=== PATIENT | female | born 1975 | race Caucasian/White ===

== ENCOUNTER 2017-01-03 10:03 | Inpatient (IN) | payer OTHER ==
[2016-12-21 13:08] VITALS: BMI 28.0
--- NOTE | 2016-12-21 13:27 | PAT Medication Instructions ---
Service Date Dec 21, 2016. Current Home Medication List Acetaminophen (Tylenol), 1,000 MG PO PRN Ascorbic Acid (Vitamin C), 500 MG PO BID Bupropion (Wellbutrin Sr), 300 MG PO QAM Cyclobenzaprine Hcl (Flexeril), 1 TAB PO HS PRN for PRN Diclofenac (Voltaren), 75 MG PO BID Etanercept (Enbrel), 50 MG INJ WEEK Melatonin (Melatonin Maximum Strengt), 10 TAB PO HS Tramadol (Ultram), 100 MG PO QID PRN for dietary server Instructions For Your Scheduled Surgery - Hold the following medications 2 weeks prior to surgery per surgeon's instructions: Etanercept (Enbrel), 50 MG INJ WEEK - Hold the following medications 7-10 days prior to surgery per surgeon's instructions: Diclofenac (Voltaren), 75 MG PO BID - Hold the following medications the morning of surgery: Ascorbic Acid (Vitamin C), 500 MG PO BID Cyclobenzaprine Hcl (Flexeril), 1 TAB PO HS PRN for PRN - Take the following medications the morning of surgery with a sip of water OTHERWISE NOTHING TO EAT OR DRINK AFTER MIDNIGHT: Tramadol (Ultram), 100 MG PO QID PRN (may take if needed up to 4 hours prior to surgery) Acetaminophen (Tylenol), 1,000 MG PO PRN (may take if needed up to 4 hours prior to surgery) Bupropion (Wellbutrin Sr), 300 MG PO QAM - Take the following medications as scheduled the night before surgery: Tramadol (Ultram), 100 MG PO QID PRN Acetaminophen (Tylenol), 1,000 MG PO PRN Melatonin (Melatonin Maximum Strengt), 10 TAB PO HS Ascorbic Acid (Vitamin C), 500 MG PO BID Cyclobenzaprine Hcl (Flexeril), 1 TAB PO HS PRN for PRN If you have any questions please call us at [phone] or [phone] or [phone]
[2016-12-21 14:15] LABS: BASO % 0.4 %; BASO ABS # 0.02 K/uL (0-0.2); COMPLETE YES; EOS % 2.1 %; HEMATOCRIT 36.5 % (37-47); LYMPH % 33.4 %; LYMPH ABS # 1.73 K/uL (1.2-3.4); MEAN CELL VOLUME 88.8 fL (80-100); MEAN CORPUSCULAR HEMOGLOBIN 29.7 pg (25-34); MEAN CORPUSCULAR HGB CONC 33.4 g/dl (32-36); MONO % 5.4 %; NEUT % 58.7 %; PLATELET COUNT 229 K/uL (130-400); RED BLOOD COUNT 4.11 M/uL (4.2-5.4); WHITE BLOOD COUNT 5.18 K/uL (4.8-10.8)
[2016-12-21 14:25] LABS: PARTIAL THROMBOPLASTIN RATIO 1.2; PROTHROMBIN TIME (PATIENT) 10.4 SECONDS (9.0-12.0)
[2016-12-21 14:27] LABS: URINE APPEARANCE CLEAR (CLEAR); URINE BILIRUBIN NEG (NEG); URINE COLOR YELLOW; URINE NITRITE NEG (NEG); URINE PH 5.5 (4.5-7.5); URINE SPECIFIC GRAVITY 1.015 (1.000-1.030); UROBILINOGEN NEG (NEG); ZZUR CULT IF INDIC CLEAN CATCH NO
[2016-12-21 14:39] LABS: MANUAL MICROSCOPIC REQUIRED? NO; REVIEW REQ? NO
[2016-12-21 15:19] LABS: BUN/CREATININE RATIO 17.9 (10-20); CALCIUM 8.4 mg/dl (8.5-10.1); CREATININE 0.74 mg/dl (0.60-1.20); POTASSIUM 3.6 mmol/L (3.5-5.1)
--- NOTE | 2016-12-31 08:47 | HISTORY & PHYSICAL EXAMINATION ---
DATE OF ADMISSION: 01/03/2017 CHIEF COMPLAINT: Left hip pain. HISTORY OF PRESENT ILLNESS: Melissa Landeros is a 41-year-old female with a 6-month history of left hip pain. The patient rates her pain a 9/10. She has pain with her daily activities. She has limited standing and walking tolerance. Pain is worse with weightbearing. The patient has had anti-inflammatories and physical therapy without relief. She has failed conservative treatment and is scheduled for left hip replacement. PAST MEDICAL HISTORY: Ankylosing spondylitis. She denies diabetes, heart disease or DVT. PAST SURGICAL HISTORY: Cholecystectomy, appendectomy, oophorectomy, tubal ligation, wisdom tooth extraction, diagnostic laparotomy, left bunionectomy, right total hip replacement. SOCIAL HISTORY: The patient denies alcohol or tobacco use. She lives in a 1-story home with her kids and her ex-. She works as a nurse. FAMILY HISTORY: Positive for DVT/PE in her mom who has lupus anticoagulant. MEDICATIONS: Diclofenac 75 mg b.i.d., Wellbutrin 150 mg 2 tablets daily, Enbrel 50 mg weekly, Tylenol 500 mg 2 tabs q.i.d., tramadol 50 mg 2 tabs q.i.d., vitamin C 500 mg b.i.d., melatonin 10 mg. ALLERGIES: DEMEROL CAUSES HIVES. REVIEW OF SYSTEMS: See HPI. Ten other systems reviewed, all negative. PHYSICAL EXAMINATION: VITAL SIGNS: Height is 5 foot 6, weight 171 pounds, BMI is 28. GENERAL: This is a well-developed, well-nourished female who is alert and oriented x3. Mood and affect are appropriate. HEAD, EYES, EARS, NOSE, AND THROAT: Normocephalic, atraumatic. Mucous membranes are moist and intact. NECK: Supple without lymphadenopathy. HEART: Regular rate and rhythm without murmurs, rubs or gallops. LUNGS: Clear to auscultation without wheezes or rhonchi. ABDOMEN: Soft and nontender. Bowel sounds are equal and active. EXTREMITIES: No ecchymosis, redness or warmth. Log roll of the hip reproduces pain in the groin. She is neurovascularly intact with +5/5 strength. X-RAY EXAMINATION: AP and lateral views show joint space narrowing and osteophyte formation. She has cystic formation and potential collapse of her femoral head. IMPRESSION: Degenerative joint disease, left hip. PLAN: The patient will be admitted for a left total hip arthroplasty, direct anterior approach. We will plan on [facility] for physical therapy. She will have aspirin for DVT prophylaxis. PCP is Horacio Rangel.
[~2017-01-03] VITALS: Ht 167.6 cm; Wt 78.8 kg
[2017-01-03] VITALS (7 sets, daily range): BP systolic 94–135; BP diastolic 57–81; PULSE 80–92; TEMP 36.7–36.9; O2SAT 96–100; Ht 167.6 cm; Wt 78.8 kg
[~2017-01-03 10:03] MED LIST: ACET-1256 PO; ACETAMINOPHEN 500 MG TAB PO SCH; ASCO1CAP3 PO; BUPIVACAINE 0.5 % 5 MG/1 ML PF 10ML VIAL ONE; BUPR-79 PO; CEFAZOLIN 2000 MG/60 ML D5W 60 ML IV SCH; CYCL10TA6 PO; CeleBREX 200 MG CAP PO SCH; DEXAMETHASONE 4 MG TAB PO SCH; DICL-201 PO; ETAN50IN2 INJ; FAMOTIDINE 20 MG TAB PO SCH; GABAPENTIN 300 MG CAP PO SCH; LACTATED RINGER'S 1000ML 1,000 ML IV SCH; LACTATED RINGER'S 1000ML 500 ML IV ONE; LACTATED RINGER'S 1000ML IV SCH; MELATAB2 PO; METOCLOPRAMIDE HCL 10 MG TAB PO SCH; OXYCODONE HCL 10 MG TABCR (OXYCONTIN) PO SCH; POLYMYXIN B SULFATE 100,000 UNITS in NSS 100ML IR SCH; ROPIVACAINE 5MG/ML 30 ML 150 MG, BUPIVACAINE/EPINEPHR 0.5% MPF 30 ML, KETOROLAC TROMETH... INFIL SCH; TRAM-10 PO; VANCOMYCIN INJ 400 MG in NSS 100ML IR SCH
[2017-01-03] MEDS ORDERED: MIDAZOLAM HCL 1 MG/ML 2ML VIAL ONE ×2 (11:17→13:39)
[2017-01-03] MEDS ORDERED: FENTANYL CITRATE INJ 50 MCG/1 ML 2 ML VIAL ONE (11:17)
--- NOTE | 2017-01-03 12:17 | History & Physical Bridge Note ---
H&P Re-Evaluation Bridge Note: I have examined the patient, reviewed the History & Physical and in the interval since the performance of the History & Physical I have noted the following changes of clinical significance: No changes noted
[2017-01-03] MEDS ORDERED: ORTHO JOINT ANESTHETIC ONE (12:40)
[2017-01-03] MEDS ORDERED: BACITRACIN 50000 UNIT VIAL ONE (12:40)
[2017-01-03] MEDS ORDERED: POVIDONE-IODINE OP SOLN 30 ML BTL ONE (12:40)
[2017-01-03] MEDS ORDERED: LACTATED RINGER'S 1000ML 1,000 ML IV PRN (12:42)
[2017-01-03] MEDS ORDERED: ONDANSETRON INJ 2 MG/ML 2 ML VIAL IV PRN ×2 (12:45→18:00)
[2017-01-03] MEDS ORDERED: FENTANYL CITRATE INJ 50 MCG/1 ML 2 ML VIAL IV PRN (12:45)
[2017-01-03] MEDS: TRANEXAMIC ACID INJ 1,000 MG in SODIUM CHLORIDE 0.9% 100ML 100 ML IV SCH ×2 (13:09→17:11)
[2017-01-03] MEDS ORDERED: LIDOCAINE HCL 2% 2 ML VIAL (20MG/ML) ONE (13:38)
[2017-01-03] MEDS ORDERED: PROPOFOL IV EMULSION 10 MG/ML 20 ML VIAL IV ONE ×2 (13:38→14:18)
[2017-01-03] MEDS ORDERED: PHENYLEPHRINE 100MCG/ML 5ML SYR ONE (13:48)
--- NOTE | 2017-01-03 14:41 | [facility] Post Operative Brief Note ---
Immediate Operative Summary Operative Date Jan 03, 2017. Pre-Operative Diagnosis Left Hip Degenerative Joint Disease Post-Operative Diagnosis Left Hip Degenerative Joint Disease Procedure(s) Performed Left Total Hip Arthroplasty, Direct Anterior Approach Surgeon Dr. Arik Mittal Personal Security Specialist Surgeon(s) Emani Goodson PA-C Estimated Blood Loss 100 mL Findings DJD Specimens A: Left Femoral Head Complication(s) None Disposition Recovery Room / PACU
--- NOTE | 2017-01-03 14:46 | DIAGNOSTIC IMAGING REPORT ---
LEFT HIP UNILATERAL 1 VIEW CLINICAL HISTORY: Left hip arthroplasty. COMPARISON STUDY: None. FINDINGS: Total fluoroscopy time was 9 seconds. A single fluoroscopic spot image. Partially visualized left total hip arthroplasty. The hardware appears intact. No fracture or dislocation. IMPRESSION: Fluoroscopy provided for left total hip arthroplasty. Electronically signed by: Erik Carty M.D. 01/03/2017 2:44 PM Dictated Date/Time: 01/03/2017 2:43 PM
--- NOTE | 2017-01-03 15:06 | OPERATIVE REPORT ---
DATE OF OPERATION: 01/03/2017 PREOPERATIVE DIAGNOSIS: Degenerative arthritis, left hip. POSTOPERATIVE DIAGNOSIS: Same. PROCEDURE: Left total hip replacement. SURGEON: Arik Mittal MD HOOP CUTTER: DANNA Leigh ANESTHESIA: Spinal. BLOOD LOSS: 100 mL. REPLACEMENT FLUIDS: 1500 mL crystalloid. DRAINS: Hemovac x2. CULTURES: None. COMPLICATIONS: None. COMPONENTS USED: Allison \T\ Nephew Anthology hip system: Acetabulum size 48, femur size 3 standard offset, femoral head 0, neck length 32 mm. NOTE: DANNA Leigh was present and assisted throughout due to the complicated nature of this case. She helped with preparation and set up, first assisted and personally closed the fascia, subcutaneous and skin layers. DESCRIPTION OF PROCEDURE: Following satisfactory spinal, the patient was supine. The left leg was placed in the traction device and the right leg in the well leg xiao. Left leg was prepared with ChloraPrep and draped sterilely. Following a surgical time-out, an anterior approach was performed in the interval between the sartorius and tensor muscles through a large subcutaneous fat layer. The circumflex femoral vessels were identified and ligated. 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 Femoral neck and head were trimmed. The acetabular self-retaining retractor was placed. Acetabular reaming and preparation was completed and a 48 shell was impacted into an anatomic position and secured with a dome screw. Local anesthetic was placed and after irrigation a polyethylene liner was placed. The femur was placed into position of external rotation, extension and adduction. Femoral canal was prepared up to a size 3. Trial reduction with a 0 neck length head using fluoroscopy showed good fit and fill of the proximal canal and lutheran of leg lengths using anatomic landmark. The hip was dislocated. The trial component was removed. After preparation, the final implant was placed. The hip was irrigated and reduced. Fluoroscopy showed similar findings. A Betadine soak was performed. After 5 minutes, the Betadine was irrigated. The capsule was closed with #1 Vicryl interrupted. A drain was placed. The fascia was closed with a running suture of #1 Vicryl, subcutaneous tissues with #1 and 2-0 Vicryl and the skin with a running subcuticular stitch of 3-0 V-Loc. Dermabond and a dry dressing were applied. The patient was returned to her bed in stable condition. I attest to the content of the Intraoperative Record and any orders documented therein. Any exceptio ns are noted below.
--- NOTE | 2017-01-03 15:09 | Anesthesiology Progress Note ---
Anesthesia Post Op Note Date & Time Jan 03, 2017 at 15:08 Vital Signs Pain Intensity: 0 Vital Signs Past 12 Hours Date Time Temp Pulse Resp B/P Pulse Ox O2 Delivery O2 Flow Rate FiO2 01/03/17 15:05 89 14 116/64 100 Nasal Cannula 2 01/03/17 14:56 36.2 97 16 115/68 96 Nasal Cannula 2 01/03/17 10:31 36.9 80 18 135/81 100 Room Air Notes Mental Status: alert / awake / arousable, participated in evaluation Pt Amnestic to Procedure: No (recall as expected) Nausea / Vomiting: adequately controlled Pain: adequately controlled Airway Patency, RR, SpO2: stable & adequate BP & HR: stable & adequate Hydration State: stable & adequate Neuraxial Anesthesia: was administered, sensory block is resolving Anesthetic Complications: no major complications apparent Pt doing well.
--- NOTE | 2017-01-03 15:23 | DIAGNOSTIC IMAGING REPORT ---
AP PELVIS, CROSSTABLE LATERAL LEFT HIP History: Left total hip arthroplasty. Degenerative arthritis. Postop. FINDINGS: The patient is status post a left total hip arthroplasty. The hardware is intact. No fracture or dislocation. Surgical drains are in place. There is a prior right total arthroplasty IMPRESSION: Left total hip arthroplasty. No evidence for hardware complication. Electronically signed by: Erik Carty M.D. 01/03/2017 3:20 PM Dictated Date/Time: 01/03/2017 3:19 PM
[2017-01-03] MEDS ORDERED: NURSING VERBAL MED ORDER ONE (18:00)
[2017-01-03] MEDS ORDERED: ALUMINUM/MAGNESIUM/SIMETH (MAALOX MAX) 30 ML UDC PO PRN (18:00)
[2017-01-03] MEDS ORDERED: CYCLOBENZAPRINE HCL 10 MG TAB PO PRN (18:00)
[2017-01-03] MEDS: KETOROLAC TROMETHAMINE 30 MG/ML VIAL IV. SCH (19:39)
[2017-01-03] MEDS: CEFAZOLIN IV 1,000 MG in DEXTROSE 5% 50ML 50 ML IV SCH (19:39)
[2017-01-03] MEDS: D5W AND 1/2NSS + 20MEQ KCL 1,000 ML IV SCH (19:40)
[2017-01-03] MEDS: ACETAMINOPHEN 500 MG TAB PO SCH (19:40)
[2017-01-03] MEDS: ASPIRIN 81 MG ECTAB PO SCH (20:41)
[2017-01-03] MEDS: ASCORBIC ACID 500 MG TAB PO SCH (20:41)
[2017-01-03] MEDS: DOCUSATE SODIUM 100 MG CAP PO SCH (20:41)
[2017-01-03] MEDS ORDERED: SENNA 8.6 MG TAB PO SCH (21:00)
[2017-01-03] MEDS: OXYCODONE HCL IR 5 MG TAB (IMMEDIATE RELEASE) PO PRN (22:51)
[2017-01-04] MEDS: ACETAMINOPHEN 500 MG TAB PO SCH ×2 (01:38→10:28)
[2017-01-04] MEDS: KETOROLAC TROMETHAMINE 30 MG/ML VIAL IV. SCH ×2 (01:38→07:42)
[2017-01-04 03:03] VITALS: BP 96/59; PULSE 79; TEMP 36.8; O2SAT 96
[2017-01-04] MEDS: CEFAZOLIN IV 1,000 MG in DEXTROSE 5% 50ML 50 ML IV SCH (03:22)
[2017-01-04] MEDS: D5W AND 1/2NSS + 20MEQ KCL 1,000 ML IV SCH (05:25)
[2017-01-04 05:47] LABS: BASO % 0.1 %; BASO ABS # 0.01 K/uL (0-0.2); COMPLETE YES; HEMATOCRIT 29.7 % (37-47); IG% 0.3 %; LYMPH % 20.6 %; LYMPH ABS # 1.46 K/uL (1.2-3.4); MEAN CELL VOLUME 88.9 fL (80-100); MEAN CORPUSCULAR HEMOGLOBIN 29.9 pg (25-34); MEAN CORPUSCULAR HGB CONC 33.7 g/dl (32-36); MEAN PLATELET VOLUME 9.7 fL (7.4-10.4); MONO % 8.3 %; NEUT % 70.7 %; PLATELET COUNT 179 K/uL (130-400); RED BLOOD COUNT 3.34 M/uL (4.2-5.4); WHITE BLOOD COUNT 7.09 K/uL (4.8-10.8)
[2017-01-04] MEDS: OXYCODONE HCL IR 5 MG TAB (IMMEDIATE RELEASE) PO PRN ×3 (06:17→15:38)
[2017-01-04 06:20] LABS: BUN/CREATININE RATIO 12.3 (10-20); CALCIUM 7.8 mg/dl (8.5-10.1); CREATININE 0.63 mg/dl (0.60-1.20); POTASSIUM 3.7 mmol/L (3.5-5.1)
[2017-01-04 07:27] VITALS: BP 99/61; PULSE 74; TEMP 36.9; O2SAT 97
[2017-01-04] MEDS: FERROUS GLUCONATE 324 MG TAB PO SCH ×2 (07:43→13:15)
--- NOTE | 2017-01-04 08:45 | Anesthesiology Progress Note ---
Anesthesia Post Op Note Date & Time Jan 04, 2017 at 08:44 Vital Signs Pain Intensity: 3.0 Vital Signs Past 12 Hours Date Time Temp Pulse Resp B/P Pulse Ox O2 Delivery O2 Flow Rate FiO2 01/04/17 07:40 Room Air 01/04/17 07:27 36.9 74 16 99/61 97 Room Air 01/04/17 03:03 36.8 79 16 96/59 96 Room Air 01/03/17 23:30 Room Air 01/03/17 23:05 36.7 84 16 94/57 96 Room Air Notes Mental Status: alert / awake / arousable, participated in evaluation Pt Amnestic to Procedure: Yes Nausea / Vomiting: adequately controlled Pain: adequately controlled Airway Patency, RR, SpO2: stable & adequate BP & HR: stable & adequate Hydration State: stable & adequate Neuraxial Anesthesia: sensory block resolved Anesthetic Complications: no major complications apparent
[2017-01-04] MEDS: ASCORBIC ACID 500 MG TAB PO SCH (08:56)
[2017-01-04] MEDS: ASPIRIN 81 MG ECTAB PO SCH (08:56)
[2017-01-04] MEDS: DOCUSATE SODIUM 100 MG CAP PO SCH (08:56)
[2017-01-04] MEDS ORDERED: PANTOprazole SOD 40 MG TAB PO SCH (09:00)
[2017-01-04] MEDS ORDERED: MULTIVITAMIN TAB PO SCH (09:00)
[2017-01-04] MEDS ORDERED: BuPROPion SR 150 MG TABCR PO SCH (09:00)
--- NOTE | 2017-01-04 10:17 | DISCHARGE SUMMARY ---
DISCHARGE DIAGNOSIS: Degenerative joint disease, left hip. SECONDARY DIAGNOSIS: None. CONSULTS: None. COMPLICATIONS: None. PROCEDURE: The patient underwent a direct anterior left total hip arthroplasty with Dr. Mittal on 01/03/2017. BRIEF HISTORY OF PRESENT ILLNESS: See previously dictated history and physical. HOSPITAL SUMMARY: The patient was admitted on the above day for the above procedure. Procedure went without complication. Postop day 1, the patient was feeling well without complaints. She denied chest pain or shortness of breath. Vital signs were stable. She was afebrile. Dressing was clean, dry and intact. She was neurovascularly intact. Calves were soft and nontender. Hemovac drained 105 and 80 mL per shift. The patient began physical therapy per protocol. She was discharged to home later that day in stable condition. For further review, please see the chart. Lab, x-ray data and discharge instructions as per chart.
--- NOTE | 2017-01-04 11:59 | Discharge Instructions ---
Discharge Instructions Date of Service Jan 04, 2017. Admission Reason for Admission: Left Hip Degenerative Arthritis Discharge Discharge Diagnosis / Problem: sp left WIL Discharge Goals Goal(s): Decrease discomfort, Improve function, Increase independence Activity Recommendations Activity Limitations: per Instructions/Follow-up section . Instructions / Follow-Up Instructions / Follow-Up ACTIVITY RECOMMENDATIONS: SELF CARE INSTRUCTIONS AFTER TOTAL HIP REPLACEMENT : Direct Anterior Approach Until the incision and soft tissues around your hip have healed, there is a possibility that the hip prosthesis could dislocate. A. Hip flexion ( Up & Down out of chair or steps ) may be difficult. This is normal. B. Numbness in front of the thigh is also normal for a few weeks. C. Use hand rails when walking on stairs. D. Wear low heeled shoes with non-slip soles. E. Be sure that your floors are free of things that could trip you - throw rugs , electrical cords, small objects. Avoid wet and waxed floors, especially with crutches and canes. F. Try to walk several times a day with rest periods between. G. Continue with all the exercises taught to you in the hospital. Again, make walking a part of your daily routine. SPECIAL CARE INSTRUCTIONS: VERY IMPORTANT TO READ AND REVIEW A. You may still be at risk for phlebitis and blood clots. 1. Wear surgical stockings (YOVANA hose) for 2 weeks after surgery to improve circulation and reduce swelling. 2. Take Aspirin 81mg twice daily for 4 weeks or as directed by your doctor. This is your blood thinner. 3. High risk patients may be prescribed a stronger blood thinner if necessary. 4. If you are on Coumadin normally, your family doctor/hot mill observer should monitor your blood work. Expect a phone call the day of or the day after bloodwork is drawn to adjust your dosage. B. You must take antibiotics before having dental work, bladder, bowel and other surgery. Your doctor will provide you with a permanent card to carry describing precautions. C. Call [facility] if you have a fever, redness or swelling around the incision, cloudy drainage from incision, or sudden increase in pain in your hip, not relieved by your regular pain medication. D. Please call the office at if you have any concerns or questions about your operation or recovery. * YOU MAY SHOWER, NO TUB BATHS UNTIL CLEARED BY YOUR DOCTOR. - Keep an extra close eye on the top portion of your incision. Be sure to keep clean & dry. * WEAR YOVANA HOSE 20 HOURS PER DAY FOR 2 WEEKS. * YOU MAY PROGRESS FROM A WALKER, TO A CANE, TO INDEPENDENT AT YOUR OWN PACE. * MOST PATIENTS WILL HAVE HOME NURSING FOR THERAPY. IF YOU DECIDE TO DO OUTPATIENT PHYSICAL THERAPY, PLEASE SCHEDULE THIS 3 TIMES PER WEEK. * DERMABOND Prineo- This is a mesh tape dressing that is covered with glue. It should remain in place until the incision is properly healed, usually 10-14 days. This dressing is designed to naturally slough off. You may trim the excess mesh tape as it peels off. Incision may be briefly wet in a shower. Dry immediately by blotting with a clean, dry towel. Do not bath or swim until instructed by your doctor. Do not scratch, rub, or pick at the dressing. Do not apply any topical ointments or lotions until dressing is completely removed and/or instructed by your doctor. There may be a small piece of suture material at one end of your incision. Do not pull or trim this. If it is bothersome or catching on clothing, you may cover it with a band-aid. FOLLOW UP VISIT: If appointment is not already scheduled: Please call [facility] to make a follow-up appointment for 2 weeks after your surgery at . Current Hospital Diet Patient's current hospital diet: Regular Diet Discharge Diet Recommended Diet: Regular Diet Procedures Procedures Performed: Left Total Hip Arthroplasty, Direct Anterior Approach Pending Studies Studies pending at discharge: no Medical Emergencies . Who to Call and When: Medical Emergencies: If at any time you feel your situation is an emergency, please call 911 immediately. . Non-Emergent Contact Non-Emergency issues call your: Surgeon . "Provider Documentation" section prepared by Emani Goodson. . VTE Core Measure Inpt VTE Proph given/why not?: Other Anticoagulation, T.E.D. [place], SCD's [place] Drug Monitoring Program Search Results: patient reviewed within database, no issues identified
[2017-01-04 12:07] VITALS: BP 104/65; PULSE 82; TEMP 36.9; O2SAT 98
[2017-01-04] MEDS ORDERED: SNK PO (12:22)
[2017-01-04] MEDS ORDERED: ONDA8TAB6 PO (12:22)
[2017-01-04] MEDS ORDERED: RXC5 PO (12:22)
[2017-01-04] MEDS ORDERED: ASPEC81 PO (12:22)
[2017-01-04] MEDS ORDERED: ACET-1256 PO (12:22)
[2017-01-04 14:01] VITALS: BP 104/65; PULSE 82; TEMP 36.9; O2SAT 98
== END 2017-01-04 16:22 | disposition home health service (06) | DRG 470 ==
LOC: ENRESERVDT → ENRESERVTM → C.ACU 10:03 → C.3E 10:29
PROVIDERS: ADMIT Orthopaedic Surgery; ATTEND Orthopaedic Surgery
PROC: 0SRB0JZ Replacement of Left Hip Joint with Synthetic Substitute, Open Approach (ICD-10-PCS; principal; 2017-01-03 12:30)
DX: M16.12 Unilateral primary osteoarthritis, left hip (principal); Z96.641 Presence of right artificial hip joint; M45.9 Ankylosing spondylitis of unspecified sites in spine; M54.2 Cervicalgia; F32.9 Major depressive disorder, single episode, unspecified; M54.6 Pain in thoracic spine; M54.5 Low back pain; Z79.899 Other long term (current) drug therapy; Z79.1 Long term (current) use of non-steroidal anti-inflammatories (NSAID); Z79.891 Long term (current) use of opiate analgesic